=== PATIENT | male | born 1965 | race Hispanic/Latino ===

== ENCOUNTER 2017-09-14 19:37 | Emergency (ER) | payer BC ==
[~2017-09-14] VITALS: Ht 165.1 cm; Wt 112.5 kg
[2017-09-14] MEDS ORDERED: FAMOTIDINE 20 MG TAB PO ONE (19:45)
[2017-09-14] MEDS ORDERED: DEXAMETHASONE SOD PHOS 10 MG/1 ML VIAL INJ ONE (19:45)
[2017-09-14] MEDS ORDERED: DIPHENHYDRAMINE HCL 25 MG CAP PO ONE (19:45)
== END 2017-09-14 20:08 | disposition home or self-care (01) ==
LOC: ER 19:37
DX: L23.7 Allergic contact dermatitis due to plants, except food (principal)
CPT/HCPCS: 99282; J1100

== ENCOUNTER 2021-09-21 11:03 | Emergency (ER) | payer BC, OTHER ==
[~2021-09-21] VITALS: Ht 165.1 cm; Wt 112.5 kg
[2021-09-21] MEDS ORDERED: HYDROCODONE/APAP 7.5MG-325MG 1 EA TAB PO ONE (12:30)
[2021-09-21] MEDS ORDERED: ANAPROX DS550 MG PO (13:34)
== END 2021-09-21 13:44 | disposition home or self-care (01) ==
LOC: ER 11:08
DX: M25.562 Pain in left knee (principal)
CPT/HCPCS: 93971; 99283

== ENCOUNTER 2021-12-06 16:56 | Emergency (ER) | payer OTHER ==
[~2021-12-06] VITALS: Ht 165.1 cm; Wt 112.5 kg
[~2021-12-06 16:56] MED LIST: ANAPROX DS550 MG PO
== END 2021-12-06 19:05 | disposition home or self-care (01) ==
LOC: ER 17:53
DX: M25.512 Pain in left shoulder (principal); M25.562 Pain in left knee; S40.022A Contusion of left upper arm, initial encounter; W11.XXXA Fall on and from ladder, initial encounter; Y92.89 Other specified places as the place of occurrence of the external cause
CPT/HCPCS: 99283